=== PATIENT | male | born 1990 ===

== ENCOUNTER 2016-12-14 22:08 | Emergency (ER) | payer SELFPAY ==
[2016-12-14 22:14] VITALS: BP 143/102; PULSE 130; RESP 20; TEMP 99.1; O2SAT 99
[2016-12-14] MEDS ORDERED: TDAP Vaccine 0.5 mL Syr IM ONE (22:54)
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
--- NOTE | 2016-12-15 10:40 | RAD ---
PROCEDURE: Left femur HISTORY: r/o FB COMPARISON: No prior TECHNIQUE: AP view of the left femur performed FINDINGS: No evidence of acute displaced fracture nor dislocation. Osseous structures appear intact. The the there are no obvious radiopaque foreign bodies. Soft tissues appear grossly unremarkable IMPRESSION: No fracture seen. No radiopaque foreign body. Followup studies could be performed if further evaluation is required
== END 2016-12-15 03:00 | disposition home or self-care (01) ==
LOC: H.ER 22:08
DX: S70.312A Abrasion, left thigh, initial encounter (principal); W34.00XA Accidental discharge from unspecified firearms or gun, initial encounter; Y92.89 Other specified places as the place of occurrence of the external cause

== ENCOUNTER 2018-08-03 23:53 | Emergency (ER) | payer MEDICAID, OTHER ==
[2018-08-04 00:06] VITALS: BMI 23.6
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
[2018-08-04 01:16] LABS: BASO # 0.1 K/uL (0.0-0.2); BASO % 1.1 % (0.0-2.0); EOS # 0.2 K/uL (0.0-0.7); EOS % 3.2 % (0.0-4.0); HEMOGLOBIN 13.5 g/dL (12.0-18.0); LYMPH # 1.6 K/uL (1.0-4.3); LYMPH % 28.3 % (20.0-40.0); MEAN CELL VOLUME 89.9 fl (80.0-94.0); MEAN CORPUSCULAR HEMOGLOBIN 30.1 pg (27.0-31.0); MEAN CORPUSCULAR HGB CONC 33.5 g/dL (33.0-37.0); MEAN PLATELET VOLUME 7.2 fl (7.2-11.7); MONO # 0.4 K/uL (0.0-0.8); MONO % 7.3 % (0.0-10.0); NEUT # 3.5 K/uL (1.8-7.0); NEUT % 60.1 % (50.0-75.0); NRBC % 0.1 % (0.0-0.0); RBC 4.49 Mil/uL (4.40-5.90); RED CELL DISTRIBUTION WIDTH 14.9 % (11.5-14.5); WHITE BLOOD COUNT 5.8 K/uL (4.8-10.8)
[2018-08-04 01:24] LABS: ALB/GLOB RATIO 1.4 (1.0-2.1); ALBUMIN 4.3 g/dL (3.5-5.0); ALT/SGPT 62 U/L (21-72); AST/SGOT 100 U/L (17-59); BLOOD UREA NITROGEN 14 mg/dl (9-20); GFR NON-AFRICAN AMERICAN > 60
--- NOTE | 2018-08-04 07:28 | ED PDOC ---
- Laboratory Results Result Diagrams: 08/04/18 01:11 08/04/18 01:11 Lab Results: Total Bilirubin 0.3 mg/dl (0.2-1.3) 08/04/18 01:11 AST 100 U/L (17-59) H 08/04/18 01:11 ALT 62 U/L (21-72) 08/04/18 01:11 Alkaline Phosphatase 94 U/L (38-126) 08/04/18 01:11 Total Protein 7.3 G/DL (6.3-8.2) 08/04/18 01:11 Albumin 4.3 g/dL (3.5-5.0) 08/04/18 01:11 Globulin 3.0 gm/dL (2.2-3.9) 08/04/18 01:11 Albumin/Globulin Ratio 1.4 (1.0-2.1) 08/04/18 01:11 - ECG O2 Sat by Pulse Oximetry: 100 (RA) - Progress Re-evaluation Time: 07:26 Condition: Improved (Awake alert oriented x 3 No focal neuro deficits. denies Suicidal or homicidal ideation. Evaluated by crisis and cleared for discharge.) Disposition - Clinical Impression Clinical Impression: Bipolar disorder, Alcohol abuse with intoxication - POA Present On Arrival: None - Disposition Referrals: [facility] [Outside] Disposition: Routine/Home Disposition Time: 07:27 Condition: FAIR Instructions: Bipolar Disorder, Alcohol Abuse and Alcoholism (DC) Forms: [facility] (Urdu)
[2018-08-04 07:58] VITALS: BP 106/70; PULSE 92; RESP 16; TEMP 98.3; O2SAT 96
--- NOTE | 2018-08-04 11:17 | CT ---
Date of service: 08/04/2018 PROCEDURE: CT HEAD WITHOUT CONTRAST. HISTORY: HEAD INJURY COMPARISON: None available. TECHNIQUE: Axial computed tomography images were obtained through the head/brain without intravenous contrast. Radiation dose: Total exam DLP = 845.11 mGy-cm. This CT exam was performed using one or more of the following dose reduction techniques: Automated exposure control, adjustment of the mA and/or kV according to patient size, and/or use of iterative reconstruction technique. FINDINGS: HEMORRHAGE: No intracranial hemorrhage. BRAIN: Normal alberto-white matter differentiation and density are appreciated throughout the cerebrum and cerebellum with the brainstem appearing unremarkable as well. There is no mass effect. There is no suspicious extra-axial fluid collection and the midline brain anatomy appears diffusely unremarkable. Incidental cisterna magna identified. VENTRICLES: Unremarkable. No hydrocephalus. CALVARIUM: No destructive bony lesion or displaced fracture identified including through the skullbase. Limited right frontal scalp hematoma noted. PARANASAL SINUSES: Unremarkable as visualized. No significant inflammatory changes. MASTOID AIR CELLS: Unremarkable as visualized. No inflammatory changes. OTHER FINDINGS: None. IMPRESSION: No intra hemorrhage or fracture identified. Normal appearing brain parenchyma identified above and below the tentorium including the brainstem. No fracture or extra-axial fluid collection appreciated. Small right frontal subgaleal/soft tissue hematoma. Concordant preliminary report from [facility], 08/04/2018 3:21 a.m..
== END 2018-08-04 07:40 | disposition home or self-care (01) ==
LOC: H.ER 23:53
DX: F31.9 Bipolar disorder, unspecified (principal); F10.129 Alcohol abuse with intoxication, unspecified; Y90.7 Blood alcohol level of 200-239 mg/100 ml
CPT/HCPCS: 70450; 80053; 80320; 85025; 96372; J1630; J2060